=== PATIENT | male | born 1990 | race Caucasian/White ===

== ENCOUNTER 2020-10-17 00:03 | Emergency (ER) | payer SELFPAY ==
[~2020-10-17] VITALS: Ht 177.8 cm; Wt 93.0 kg
[2020-10-17 00:22] VITALS: BP 134/60
--- NOTE | 2020-10-17 00:44 | NUR ---
PATIENT PRESENTS TO ED WITH SOB, NAUSEA AND FEVER SINCE TODAY . PT STATES HE TESTED POSITIVE FOR COVID TODAY.SKIN IS PINK/WARM/DRY; AAOX4 WITH EVEN AND STEADY GAIT; LUNGS CLEAR BL; HR EVEN AND REGULAR; PT DENIES ANY FEVER, CP, SOB, OR COUGH AT THIS TIME; PATIENT STATES PAIN OF 0/10 AT THIS TIME; VSS; PATIENT POSITIONED FOR COMFORT; HOB ELEVATED; BEDRAILS UP X2; BED DOWN. ER MD MADE AWARE OF PT STATUS.
[2020-10-17] MEDS ORDERED: IBUPROFEN 800 MG TAB PO ONE (01:15)
[2020-10-17] MEDS ORDERED: ONDANSETRON 4 MG ODT PO ONE (01:15)
[2020-10-17 01:52] VITALS: BP 122/69
== END 2020-10-17 01:52 | disposition home or self-care (01) ==
LOC: MED 00:03
DX: R51.9 Headache, unspecified (principal); Z20.828 Contact with and (suspected) exposure to other viral communicable diseases
CPT/HCPCS: 71045; 99283; Q0162